=== PATIENT | male | born 1990 | race African-American/Black ===

== ENCOUNTER 2019-01-21 19:34 | Emergency (ER) | payer BC ==
[~2019-01-21] VITALS: Ht 177.8 cm; Wt 75.0 kg
[2019-01-21] MEDS ORDERED: KETOROLAC 60MG/2ML VIAL IM ONE (20:00)
[2019-01-21] MEDS ORDERED: HYDROCODONE/ACETAMINOPHEN 5/325MG TABLET PO ONE (20:00)
[2019-01-21] MEDS ORDERED: BACITRACIN ZINC OINT UDPKT TOP ONE (21:30)
[2019-01-21 22:49] VITALS: BP 126/73
== END 2019-01-21 23:05 | disposition home or self-care (01) ==
LOC: ER 19:34
DX: S16.1XXA Strain of muscle, fascia and tendon at neck level, initial encounter (principal); S00.81XA Abrasion of other part of head, initial encounter; M25.512 Pain in left shoulder; V49.49XA Driver injured in collision with other motor vehicles in traffic accident, initial encounter; Y93.89 Activity, other specified; Y92.488 Other paved roadways as the place of occurrence of the external cause; Y99.8 Other external cause status
CPT/HCPCS: 70450; 72125; 96372; 99284; J1885